=== PATIENT | male | born 1990 | race African-American/Black ===

== ENCOUNTER 2018-06-28 16:19 | Emergency (ER) | payer SELFPAY ==
[2018-06-28 17:24] LABS: Bilirubin Negative (Negative); Blood, Urine Negative (Negative); Clarity Clear (Clear); Glucose, Urine (Dipstick) Negative (Negative); Leukocyte Negative (Negative); Nitrite Negative (Negative); Protein, Urine (Dipstick) Negative (Neg-Trace); Specific Gravity, Urine 1.015 (1.005-1.030)
[2018-06-28] MEDS ORDERED: Azithromycin 250 MG TAB ONE (17:36)
[2018-06-28] MEDS ORDERED: cefTRIAXone\\ROCEPHIN 250 MG VIAL ONE (17:36)
[2018-06-28] MEDS ORDERED: Lidocaine 1% 20 ML MDV ONE (17:37)
[2018-06-28] MEDS ORDERED: cefTRIAXone\\ROCEPHIN 1 GM VIAL ONE (17:39)
[2018-07-01 22:47] LABS: Chlamydia by PCR Not Detected (NotDetected); GC by PCR DETECTED (NotDetected)
== END 2018-06-28 17:50 | disposition home or self-care (01) ==
LOC: MADERS 16:19
DX: A64 Unspecified sexually transmitted disease (principal); F17.210 Nicotine dependence, cigarettes, uncomplicated
CPT/HCPCS: 81003; 87491; 87591; 96372; J0696; J2001

== ENCOUNTER 2019-02-18 12:44 | Emergency (ER) | payer SELFPAY ==
[2019-02-18] MEDS ORDERED: Acetaminophen 500 MG TAB ONE (13:11)
== END 2019-02-18 14:07 | disposition home or self-care (01) ==
LOC: MADERS 12:44
DX: H00.015 Hordeolum externum left lower eyelid (principal); F17.210 Nicotine dependence, cigarettes, uncomplicated
CPT/HCPCS: 99283

== ENCOUNTER 2019-03-05 07:34 | Emergency (ER) | payer SELFPAY ==
[2019-03-05] MEDS ORDERED: Adacel (T-DAP) 0.5 ML SYRINGE ONE (08:04)
[2019-03-05] MEDS ORDERED: Triple Antibiotic Oint 1 GM Packet ONE (08:08)
[2019-03-05] MEDS ORDERED: Lidocaine 1% w/Epinephrine 1:100K 20 ML VIAL ONE (08:08)
[2019-03-05] MEDS ORDERED: Sodium Chloride Irrig Solution 250 ML BOT ONE (08:12)
[2019-03-05] MEDS ORDERED: Ibuprofen 600 MG TAB ONE (08:17)
[2019-03-05] MEDS ORDERED: Bacitracin Zinc 1 Packet ONE (08:44)
--- NOTE | 2019-03-05 08:46 | CT ---
CT BRAIN WITHOUT CONTRAST: Date: 03/05/19 HISTORY: Head injury. COMPARISON: None. FINDINGS: Right forehead soft tissue contusion and left posterior parietal soft tissue contusion. The underlyin g calvarium is intact. No acute hemorrhage or infarct. No midline shift or mass effect. Paranasal sinuses and mastoids are c lear. IMPRESSION: No acute intracranial abnormality. Right forehead and left posterior parietal soft tissue scalp cont usions. POS: CET
== END 2019-03-05 08:55 | disposition home or self-care (01) ==
LOC: MADERS 07:34
DX: S01.81XA Laceration without foreign body of other part of head, initial encounter (principal); S50.811A Abrasion of right forearm, initial encounter; F17.210 Nicotine dependence, cigarettes, uncomplicated; Y04.0XXA Assault by unarmed brawl or fight, initial encounter
CPT/HCPCS: 12011; 70450; 90471; 90715; J2001

== ENCOUNTER 2019-09-20 15:47 | Emergency (ER) | payer SELFPAY ==
[2019-09-20] MEDS ORDERED: Ondansetron ODT 4 MG TAB ONE (16:02)
[2019-09-20] MEDS ORDERED: Mag-Al Plus 1200 MG/1200 MG/120 MG/30 ML UDCUP ONE (16:02)
[2019-09-20] MEDS ORDERED: Lidocaine Viscous Sol 2% 15 ml UD Cup ONE (16:02)
== END 2019-09-20 17:20 | disposition home or self-care (01) ==
LOC: MADERS 15:47
DX: R10.13 Epigastric pain (principal); R11.2 Nausea with vomiting, unspecified; F17.210 Nicotine dependence, cigarettes, uncomplicated
CPT/HCPCS: 99283; Q0162

== ENCOUNTER 2020-01-30 14:23 | Emergency (ER) | payer SELFPAY | END 2020-01-30 15:45 | disposition home or self-care (01) | LOC: MADERS 14:23 | DX: Z20.2 Contact with and (suspected) exposure to infections with a predominantly sexual mode of transmission (principal); E66.9 Obesity, unspecified | CPT/HCPCS: 99281 ==

== ENCOUNTER 2020-02-18 01:55 | Emergency (ER) | payer SELFPAY ==
[2020-02-18] MEDS ORDERED: Sterile Water 10 ML ONE (02:34)
[2020-02-18] MEDS ORDERED: cefTRIAXone\\ROCEPHIN 1 GM VIAL ONE (02:34)
[2020-02-18] MEDS ORDERED: Azithromycin 250 MG TAB ONE (02:34)
[2020-02-18 02:42] LABS: Bilirubin Negative (Negative); Blood, Urine Trace (Negative); Clarity Clear (Clear); Glucose, Urine (Dipstick) Negative (Negative); Leukocyte Negative (Negative); Nitrite Negative (Negative); Protein, Urine (Dipstick) Negative (Neg-Trace); Urobilinogen 0.2 mg/dL (Less than 2)
[2020-02-18 02:48] LABS: RBC/HPF 0-3 HPF (0-3); Squamous Epithelial 0-3 HPF (0-3)
[2020-02-18 02:49] LABS: Bacteria/HPF None Seen HPF (None Seen)
[2020-02-19 21:27] LABS: Chlam.trachomatis by PCR,Urine Not Detected (NotDetected)
== END 2020-02-18 02:55 | disposition home or self-care (01) ==
LOC: MADERS 01:55
DX: N34.1 Nonspecific urethritis (principal)
CPT/HCPCS: 81003; 81015; 87491; 87591; 96372; 99283; J0696

== ENCOUNTER 2020-11-21 13:13 | Emergency (ER) | payer SELFPAY ==
--- NOTE | 2020-11-21 14:03 | RAD ---
2 views of the chest: 11/21/2020 COMPARISON: None HISTORY: Cough FINDINGS: There is no pneumothorax or pleural fluid. No focal consolidation or alveolar edema. Heart and mediastinal contours are unremarkable. IMPRESSION: No acute findings.
[2020-11-21] MEDS ORDERED: Sodium Chloride 0.9% 1,000 ML ONE (14:17)
[2020-11-21] MEDS ORDERED: Acetaminophen 500 MG TAB ONE (14:17)
[2020-11-21 14:34] LABS: ALT (SGPT) 15 U/L (8-55); AST (SGOT) 19 U/L (5-34); Albumin 3.9 g/dL (3.5-5.0); Alkaline Phosphatase 62 U/L (40-110); Anion Gap 13 mmol/L (10-20); BUN (Urea Nitrogen) 12 mg/dL (8.9-20.6); Bilirubin, Total 0.2 mg/dL (0.2-1.2); Calc. Creatinine Clearance 0 mL/min (70-130); Calcium 8.5 mg/dL (7.8-10.44); Carbon Dioxide 27 mmol/L (22-29); Chloride 102 mmol/L (98-107); Globulin 3.3 g/dL (2.4-3.5); Glucose 135 mg/dL (70-105); Potassium 4.1 mmol/L (3.5-5.1); Protein, Total 7.2 g/dL (6.0-8.3); Sodium 138 mmol/L (136-145)
[2020-11-21 14:37] LABS: Eosinophils 5 % (0-10); Hemoglobin 13.2 g/dL (14.0-18.0); Lymphocytes 22 % (21-51); MDiff Complete? YES; Mean Corpuscular HGB CONC 31.3 g/dL (32.0-36.0); Mean Corpuscular Hemoglobin 25.8 pg (27.0-31.0); Mean Corpuscular Volume 82.3 fL (78.0-98.0); Mean Platelet Volume 6.7 fL (7.4-10.4); Monocytes 5 % (0-10); Myelocyte 2 % (0-0); Neutrophil 42 % (42-75); Platelet Count 319 thou/uL (130-400); Platelet Morphology Comment Appears Adequate; RBC Distribution Width 13.2 % (11.5-14.5); RBC Morphology Normal; Reactive Lymphocytes 24 % (0-10); Red Blood Cell (RBC) Count 5.12 mill/uL (4.70-6.10); White Blood Cell (WBC) Count 6.8 thou/uL (4.8-10.8)
[2020-11-22 03:24] LABS: SARS-CoV-2 PCR by NAA Not Detected (NotDetected)
== END 2020-11-21 14:57 | disposition home or self-care (01) ==
LOC: MADERS 13:13
DX: R05 Cough (principal); R11.0 Nausea; R19.7 Diarrhea, unspecified; R43.8 Other disturbances of smell and taste; Z20.822 Contact with and (suspected) exposure to COVID-19; I10 Essential (primary) hypertension; E66.9 Obesity, unspecified
CPT/HCPCS: 71046; 80053; 83605; 84484; 85025; 87635; 87804; J7050; U0003; U0005

== ENCOUNTER 2020-12-24 13:04 | Emergency (ER) | payer SELFPAY ==
[2020-12-24] MEDS ORDERED: Aspirin Chewable 81 MG TAB ONE (13:59)
[2020-12-24 14:15] LABS: #Basophils 0.1 thou/uL (0.0-0.2); #Eosinphils 0.1 thou/uL (0.0-0.7); #Lymphocytes 2.4 thou/uL (1.20-3.40); #Monocytes 0.4 thou/uL (0.11-0.59); %Basophils 1.9 % (0.0-1.0); %Lymphocytes 33.9 % (21.0-51.0); %Neutrophils 57.1 % (42.0-75.0); Hemoglobin 13.3 g/dL (14.0-18.0); Mean Corpuscular HGB CONC 31.3 g/dL (32.0-36.0); Mean Corpuscular Hemoglobin 25.9 pg (27.0-31.0); Mean Corpuscular Volume 82.7 fL (78.0-98.0); Mean Platelet Volume 6.4 fL (7.4-10.4); Platelet Count 304 thou/uL (130-400); RBC Distribution Width 13.1 % (11.5-14.5); Red Blood Cell (RBC) Count 5.14 mill/uL (4.70-6.10); White Blood Cell (WBC) Count 6.9 thou/uL (4.8-10.8)
[2020-12-24 14:31] LABS: ALT (SGPT) 17 U/L (8-55); AST (SGOT) 19 U/L (5-34); Albumin 3.9 g/dL (3.5-5.0); Alkaline Phosphatase 53 U/L (40-110); Anion Gap 16 mmol/L (10-20); BUN (Urea Nitrogen) 11 mg/dL (8.9-20.6); Bilirubin, Total 0.3 mg/dL (0.2-1.2); Calc. Creatinine Clearance 0 mL/min (70-130); Calcium 8.9 mg/dL (7.8-10.44); Carbon Dioxide 26 mmol/L (22-29); Chloride 99 mmol/L (98-107); Globulin 3.4 g/dL (2.4-3.5); Glucose 109 mg/dL (70-105); Lipase 10 U/L (8-78); Protein, Total 7.3 g/dL (6.0-8.3); Sodium 137 mmol/L (136-145)
== END 2020-12-24 16:19 | disposition left against medical advice (07) ==
LOC: MADERS 13:04
DX: R07.9 Chest pain, unspecified (principal); I10 Essential (primary) hypertension; E66.9 Obesity, unspecified
CPT/HCPCS: 36415; 71045; 80053; 83690; 84484; 85025; 85379; 93005

== ENCOUNTER 2021-03-27 13:51 | Emergency (ER) | payer SELFPAY ==
[2021-03-27] MEDS ORDERED: Ibuprofen 600 MG TAB ONE (14:24)
== END 2021-03-27 15:14 | disposition home or self-care (01) ==
LOC: MADERS 13:51
DX: I10 Essential (primary) hypertension (principal); E66.9 Obesity, unspecified; Z79.899 Other long term (current) drug therapy
CPT/HCPCS: 99283

== ENCOUNTER 2021-06-06 09:13 | Emergency (ER) | payer SELFPAY ==
[2021-06-06] MEDS ORDERED: Lidocaine Viscous Sol 2% 15 ml UD Cup ONE (09:45)
[2021-06-06] MEDS ORDERED: Ketorolac Tromethamine 60 MG/2 ML VIAL ONE (09:46)
== END 2021-06-06 10:23 | disposition home or self-care (01) ==
LOC: MADERS 09:13
DX: K04.7 Periapical abscess without sinus (principal); K02.9 Dental caries, unspecified; I10 Essential (primary) hypertension; Z79.899 Other long term (current) drug therapy
CPT/HCPCS: 96372; 99282; J1885

== ENCOUNTER 2021-07-23 13:16 | Emergency (ER) | payer SELFPAY ==
[2021-07-23 14:37] LABS: Hemoglobin 13.2 g/dL (14.0-18.0); Mean Corpuscular HGB CONC 29.8 g/dL (32.0-36.0); Mean Corpuscular Hemoglobin 25.1 pg (27.0-31.0); Mean Platelet Volume 7.1 fL (7.4-10.4); Platelet Count 324 thou/uL (130-400); RBC Distribution Width 14.3 % (11.5-14.5); Red Blood Cell (RBC) Count 5.25 mill/uL (4.70-6.10); White Blood Cell (WBC) Count 8.1 thou/uL (4.8-10.8)
[2021-07-23 14:39] LABS: Anion Gap 12 mmol/L (10-20); BUN (Urea Nitrogen) 12 mg/dL (8.9-20.6); Calc. Creatinine Clearance 0 mL/min (70-130); Calcium 9.8 mg/dL (7.8-10.44); Carbon Dioxide 29 mmol/L (22-29); Chloride 102 mmol/L (98-107); Glucose 90 mg/dL (70-105); Potassium 4.3 mmol/L (3.5-5.1); Sodium 139 mmol/L (136-145)
[2021-07-23] MEDS ORDERED: Ketorolac Tromethamine 30 MG/ML VIAL ONE (14:44)
[2021-07-23 15:13] LABS: Eosinophils 2 % (0-10); Lymphocytes 30 % (21-51); MDiff Complete? YES; Monocytes 6 % (0-10); Neutrophil 62 % (42-75); Platelet Morphology Comment Appears Adequate
== END 2021-07-23 17:05 | disposition left against medical advice (07) ==
LOC: MADERS 13:16
DX: R10.9 Unspecified abdominal pain (principal); R79.1 Abnormal coagulation profile; R07.89 Other chest pain; K21.9 Gastro-esophageal reflux disease without esophagitis; I10 Essential (primary) hypertension; E66.9 Obesity, unspecified; Z79.899 Other long term (current) drug therapy
CPT/HCPCS: 36415; 74176; 80048; 85025; 85379; 96372; J1885

== ENCOUNTER 2022-06-26 22:03 | Emergency (ER) | payer SELFPAY ==
[2022-06-26] MEDS ORDERED: Ketorolac Tromethamine 30 MG/ML VIAL ONE (22:39)
== END 2022-06-26 23:13 | disposition home or self-care (01) ==
LOC: MADERS 22:03
DX: M54.50 Low back pain, unspecified (principal); I10 Essential (primary) hypertension; K21.9 Gastro-esophageal reflux disease without esophagitis; F17.210 Nicotine dependence, cigarettes, uncomplicated; E66.9 Obesity, unspecified; Z68.45 Body mass index [BMI] 70 or greater, adult; Z79.899 Other long term (current) drug therapy
CPT/HCPCS: 96372; 99283; J1885

== ENCOUNTER 2022-07-18 16:37 | Emergency (ER) | payer SELFPAY ==
[2022-07-18] MEDS ORDERED: Famotidine/PF 20 mg/2ml Vial ONE (16:54)
[2022-07-18] MEDS ORDERED: diphenhydrAMINE 50 MG/ML VIAL ONE (16:58)
[2022-07-18] MEDS ORDERED: methylPREDNISolone Sod Succ/PF 125 MG/2 ML VIAL ONE (16:58)
[2022-07-18 17:10] LABS: #Basophils 0.1 thou/uL (0.0-0.2); #Lymphocytes 2.5 thou/uL (1.20-3.40); #Monocytes 0.6 thou/uL (0.11-0.59); #Neutrophils 4.3 thou/uL (1.40-6.50); %Basophils 1.3 % (0.0-1.0); %Eosinophils 0.6 % (0.0-10.0); %Lymphocytes 33.6 % (21.0-51.0); %Monocytes 7.9 % (0.0-10.0); %Neutrophils 56.6 % (42.0-75.0); Hemoglobin 13.2 g/dL (14.0-18.0); Mean Corpuscular HGB CONC 30.2 g/dL (32.0-36.0); Mean Corpuscular Volume 82.8 fL (78.0-98.0); Mean Platelet Volume 8.3 fL (7.4-10.4); Platelet Count 307 thou/uL (130-400); RBC Distribution Width 13.2 % (11.5-14.5); Red Blood Cell (RBC) Count 5.27 mill/uL (4.70-6.10); White Blood Cell (WBC) Count 7.5 thou/uL (4.8-10.8)
[2022-07-18] MEDS ORDERED: Tranexamic Acid 1,000 MG/10 ML VIAL ONE (17:16)
[2022-07-18 17:21] LABS: Polychromasia SLIGHT = 2-3 cells (100X) (0-2/hpf)
[2022-07-18 17:22] LABS: ALT (SGPT) 19 U/L (8-55); AST (SGOT) 25 U/L (5-34); Albumin 4.5 g/dL (3.5-5.0); Alkaline Phosphatase 48 U/L (40-110); Anion Gap 16 mmol/L (10-20); BUN (Urea Nitrogen) 13 mg/dL (8.9-20.6); Bilirubin, Total 0.5 mg/dL (0.2-1.2); Calc. Creatinine Clearance 0 mL/min (70-130); Calcium 9.6 mg/dL (7.8-10.44); Carbon Dioxide 29 mmol/L (22-29); Chloride 97 mmol/L (98-107); Estimated GFR 100; Globulin 3.9 g/dL (2.4-3.5); Glucose 91 mg/dL (70-105); Potassium 4.1 mmol/L (3.5-5.1); Protein, Total 8.4 g/dL (6.0-8.3); Sodium 138 mmol/L (136-145)
== END 2022-07-18 20:18 | disposition home or self-care (01) ==
LOC: MADERS 16:37
DX: T78.3XXA Angioneurotic edema, initial encounter (principal); I10 Essential (primary) hypertension; K21.9 Gastro-esophageal reflux disease without esophagitis; F17.210 Nicotine dependence, cigarettes, uncomplicated; E66.9 Obesity, unspecified; Z68.45 Body mass index [BMI] 70 or greater, adult; Z79.899 Other long term (current) drug therapy
CPT/HCPCS: 80053; 85025; 96365; 96375; J1200; J2930; S0028

== ENCOUNTER 2022-10-22 06:18 | Emergency (ER) | payer SELFPAY | END 2022-10-22 07:36 | disposition home or self-care (01) | LOC: MADERS 06:18 | DX: H69.93 Unspecified Eustachian tube disorder, bilateral (principal); Z20.822 Contact with and (suspected) exposure to COVID-19; K21.9 Gastro-esophageal reflux disease without esophagitis; I10 Essential (primary) hypertension; E66.9 Obesity, unspecified; F17.290 Nicotine dependence, other tobacco product, uncomplicated | CPT/HCPCS: 99283; U0003; U0005 ==

== ENCOUNTER 2023-05-30 06:04 | Emergency (ER) | payer SELFPAY ==
[2023-05-30] MEDS ORDERED: Amlodipine 5 MG TAB ONE (06:37)
[2023-05-30] MEDS ORDERED: Sodium Chloride 0.9% 1,000 ML ONE (06:43)
[2023-05-30 06:56] LABS: #Basophils 0.1 thou/uL (0.0-0.2); #Lymphocytes 1.9 thou/uL (1.20-3.40); #Monocytes 0.4 thou/uL (0.11-0.59); #Neutrophils 4.2 thou/uL (1.40-6.50); %Basophils 0.8 % (0.0-1.0); %Eosinophils 0.2 % (0.0-10.0); %Lymphocytes 29.4 % (21.0-51.0); %Monocytes 6.1 % (0.0-10.0); %Neutrophils 63.4 % (42.0-75.0); Hematocrit 39.8 % (42.0-52.0); Hemoglobin 12.9 g/dL (14.0-18.0); Mean Corpuscular HGB CONC 32.5 g/dL (32.0-36.0); Mean Corpuscular Volume 83.2 fl (78.0-98.0); Mean Platelet Volume 7.6 fL (7.4-10.4); Platelet Count 304 10x3/uL (130-400); RBC Distribution Width 13.7 % (11.5-14.5); Red Blood Cell (RBC) Count 4.78 mill/uL (4.70-6.10); White Blood Cell (WBC) Count 6.6 10x3/uL (4.8-10.8)
[2023-05-30 07:16] LABS: ALT (SGPT) 19 U/L (8-55); AST (SGOT) 23 U/L (5-34); Albumin 4.3 g/dL (3.5-5.0); Alkaline Phosphatase 50 U/L (40-110); Anion Gap 16 mmol/L (10-20); BUN (Urea Nitrogen) 12 mg/dL (8.9-20.6); Bilirubin, Total 0.2 mg/dL (0.2-1.2); Calc. Creatinine Clearance 0 mL/min (70-130); Calcium 9.4 mg/dL (7.8-10.44); Carbon Dioxide 25 mmol/L (22-29); Chloride 101 mmol/L (98-107); Estimated GFR 94; Globulin 3.3 g/dL (2.4-3.5); Glucose 115 mg/dL (70-105); Potassium 3.9 mmol/L (3.5-5.1); Protein, Total 7.6 g/dL (6.0-8.3); Sodium 138 mmol/L (136-145)
[2023-05-30] MEDS ORDERED: Labetalol HCl 100 MG/20 ML VIAL ONE (07:53)
[2023-05-30 08:34] LABS: Bilirubin Negative (Negative); Blood, Urine Trace (Negative); Glucose, Urine (Dipstick) Negative (Negative); Ketone, Urine Negative (Negative); Leukocyte Negative (Negative); Nitrite Negative (Negative); Protein, Urine (Dipstick) Negative (Neg-Trace); Urobilinogen 0.2 mg/dL (Less than 2); pH, Urine 5.5 (5.0-9.0)
[2023-05-30 08:38] LABS: CAUTI Indications for Culture Pelvic or flank pain; Clarity Hazy (Clear)
[2023-05-30 08:39] LABS: Bacteria/HPF Rare-Few HPF (None Seen); RBC/HPF 0-3 HPF (0-3); Squamous Epithelial 0-3 HPF (0-3); WBC/HPF 0-3 HPF (0-3)
[2023-05-30 08:40] LABS: Amphetamine Detected (NotDetected); Barbiturates Screen Not Detected (NotDetected); Benzodiazepine Screen Not Detected (NotDetected); Cocaine Metabolite Screen Not Detected (NotDetected); Methadone Not Detected (NotDetected); Methamphetamine Detected (NotDetected); Opiate Screen Not Detected (NotDetected); Oxycodone Screen Not Detected (NotDetected); Phencyclidine (PCP) Not Detected (NotDetected); THC/Cannabinoid Screen Detected (NotDetected); Tricyclic Screen Not Detected (NotDetected); Urine Culture Reflex No No
== END 2023-05-30 08:45 | disposition home or self-care (01) ==
LOC: MADERS 06:04
DX: I10 Essential (primary) hypertension (principal); F43.0 Acute stress reaction
CPT/HCPCS: 36416; 71045; 80053; 80306; 81001; 84443; 84484; 85025; 93005; 96374; J7050

== ENCOUNTER 2023-06-05 14:45 | Emergency (ER) | payer SELFPAY ==
[2023-06-05] MEDS ORDERED: Amlodipine 5 MG TAB ONE (15:19)
== END 2023-06-05 15:25 | disposition home or self-care (01) ==
LOC: MADERS 14:45
DX: I10 Essential (primary) hypertension (principal); K21.9 Gastro-esophageal reflux disease without esophagitis; E66.9 Obesity, unspecified; F17.290 Nicotine dependence, other tobacco product, uncomplicated; Z79.899 Other long term (current) drug therapy
CPT/HCPCS: 99283

== ENCOUNTER 2025-09-07 16:55 | Emergency (ER) | payer SELFPAY | END 2025-09-07 17:35 | disposition home or self-care (01) | LOC: MADERS 16:55 | DX: H72.92 Unspecified perforation of tympanic membrane, left ear (principal); I10 Essential (primary) hypertension; E66.9 Obesity, unspecified; F17.290 Nicotine dependence, other tobacco product, uncomplicated | CPT/HCPCS: 99282 ==

== ENCOUNTER 2025-09-09 13:16 | Emergency (ER) | payer SELFPAY ==
[2025-09-09] MEDS ORDERED: Bacitracin 1 PK ONE (17:15)
[2025-09-09] MEDS ORDERED: levETIRAcetam 500 MG (5 mL) VIAL ONE (17:15)
== END 2025-09-09 13:55 | disposition home or self-care (01) ==
LOC: MADERS 13:16
DX: S09.22XA Traumatic rupture of left ear drum, initial encounter (principal); K21.9 Gastro-esophageal reflux disease without esophagitis; I10 Essential (primary) hypertension; R73.03 Prediabetes; E66.9 Obesity, unspecified; X58.XXXA Exposure to other specified factors, initial encounter
CPT/HCPCS: 90715; 99282; J1953

== ENCOUNTER 2025-10-18 06:38 | Emergency (ER) | payer SELFPAY | END 2025-10-18 07:35 | disposition home or self-care (01) | LOC: MADERS 06:38 | DX: S00.03XA Contusion of scalp, initial encounter (principal); S50.812A Abrasion of left forearm, initial encounter; I10 Essential (primary) hypertension; F17.210 Nicotine dependence, cigarettes, uncomplicated; F17.200 Nicotine dependence, unspecified, uncomplicated; W22.09XA Striking against other stationary object, initial encounter | CPT/HCPCS: 96372; 99284; J1885 ==